=== PATIENT | female | born 1960 | race Hispanic/Latino ===

== ENCOUNTER 2022-03-14 09:17 | Inpatient (IN) | payer OTHER ==
[2022-03-14] VITALS (14 sets, daily range): BP systolic 96–122; BP diastolic 36–76
[~2022-03-14] VITALS: Ht 167.6 cm; Wt 86.2 kg
[2022-03-14 11:24] LABS: BASOPHILS % (AUTO) 0.4 % (0.0-5.0); HEMATOCRIT 42.9 % (36-48); LYMPHOCYTES % (AUTO) 45.4 % (21.0-51.0); MEAN CORPUSCULAR HEMOGLOBIN 30.6 pg (27.0-33.0); MEAN CORPUSCULAR HGB CONC 34.3 g/dL (32.0-36.0); MEAN CORPUSCULAR VOLUME 89.4 fL (79-99); NEUTROPHILS % (AUTO) 41.8 % (40.0-77.0); PLATELET COUNT (AUTO) 244 K/uL (130-400); RED CELL DISTRIBUTION WIDTH 13.4 % (11.0-15.5); WHITE BLOOD COUNT (AUTO) 5.3 K/uL (4.8-10.8)
[2022-03-14] MEDS ORDERED: NOREPINEPHRINE 8MG/NS 250ML PREMIX IV SCH (11:30)
[2022-03-14] MEDS ORDERED: HEPARIN 25,000 UNITS/250ML D5W 250 ML IV SCH (11:30)
[2022-03-14 11:49] LABS: POTASSIUM 2.8 mmol/L (3.5-5.1)
[2022-03-14] MEDS: NOREPINEPHRIN 8MG/250ML NS PMX 250 ML IV SCH (11:59)
[2022-03-14] MEDS ORDERED: ONDANSETRON 4MG INJ IV PRN (12:00)
[2022-03-14] MEDS ORDERED: LACTULOSE 20 GM/30 ML UDCUP PO PRN (12:00)
[2022-03-14] MEDS ORDERED: DiphenhydrAMINE HCL 50 MG/ML VIAL IV PRN (12:00)
[2022-03-14] MEDS ORDERED: MAG/ALUM/SIMETH 30 ML UDCUP PO PRN (12:00)
[2022-03-14] MEDS ORDERED: NITROGLYCERIN 0.4 MG SL TAB SL PRN (12:00)
[2022-03-14] MEDS ORDERED: ACETAMINOPHEN 325 MG TAB PO PRN ×2 (12:00)
[2022-03-14] MEDS ORDERED: DIPHENHYDRAMINE HCL 25 MG CAPSULE PO PRN (12:00)
[2022-03-14] MEDS ORDERED: GUAIFENESIN-DM 200/20 MG 10 ML PO PRN (12:00)
[2022-03-14] MEDS: POTASSIUM CHLORIDE 10% ELIXIR 20 MEQ/15 ML UDCUP PO PRN ×2 (12:22→14:16)
[2022-03-14] MEDS ORDERED: LIDOCAINE HCL-MPF 1% 2ML VIAL IV PRN (12:30)
[2022-03-14] MEDS ORDERED: POTASSIUM CHLORIDE 20MEQ/100ML 100 ML IV PRN (12:30)
[2022-03-14] MEDS: KCL 20 MEQ ERTAB PO PRN ×2 (17:50→21:52)
[2022-03-14] MEDS: FAMOTIDINE 20MG VIAL IV SCH ×2 (20:46→21:00)
[2022-03-14] MEDS: FAMOTIDINE 20MG TAB PO SCH (20:47)
[2022-03-14] MEDS: ATORVASTATIN 40 MG TABLET PO SCH (20:54)
[2022-03-15] VITALS (48 sets, daily range): BP systolic 85–129; BP diastolic 37–90
[2022-03-15] MEDS: KCL 20 MEQ ERTAB PO PRN ×2 (00:06→21:33)
[2022-03-15] MEDS: NOREPINEPHRIN 8MG/250ML NS PMX 250 ML IV SCH (04:14)
[2022-03-15 06:51] LABS: BASOPHILS % (AUTO) 0.3 % (0.0-5.0); EOSINOPHILS % (AUTO) 1.9 % (0.0-8.0); HEMATOCRIT 40.1 % (36-48); LYMPHOCYTES % (AUTO) 34.3 % (21.0-51.0); MEAN CORPUSCULAR HEMOGLOBIN 30.6 pg (27.0-33.0); MEAN CORPUSCULAR HGB CONC 33.9 g/dL (32.0-36.0); MEAN CORPUSCULAR VOLUME 90.1 fL (79-99); MONOCYTES % (AUTO) 9.3 % (3.0-13.0); NEUTROPHILS % (AUTO) 53.7 % (40.0-77.0); PLATELET COUNT (AUTO) 205 K/uL (130-400); RED BLOOD CELL COUNT(AUTO) 4.45 MIL/uL (4.00-5.50); RED CELL DISTRIBUTION WIDTH 13.5 % (11.0-15.5); WHITE BLOOD COUNT (AUTO) 6.4 K/uL (4.8-10.8)
[2022-03-15 07:01] LABS: CREATININE 0.8 mg/dL (0.5-1.5); MAGNESIUM 1.9 mg/dL (1.80-2.40); PHOSPHORUS 2.3 mg/dL (2.5-4.9); POTASSIUM 3.6 mmol/L (3.5-5.1)
[2022-03-15] MEDS: ASPIRIN 81MG CHEW TAB PO SCH (08:22)
[2022-03-15] MEDS: FAMOTIDINE 20MG TAB PO SCH ×2 (08:22→21:12)
[2022-03-15] MEDS: CLOPIDOGREL 75MG TAB PO SCH (08:22)
[2022-03-15] MEDS: MAGNESIUM 2GM PREMIX 50ML 50 ML IV PRN (11:17)
[2022-03-15] MEDS: MIDODRINE HCL 5 MG TABLET PO SCH ×3 (14:00→21:13)
[2022-03-15 20:38] LABS: MAGNESIUM 2.2 mg/dL (1.80-2.40); POTASSIUM 3.7 mmol/L (3.5-5.1)
[2022-03-15] MEDS: CEFTRIAXONE 1G VIAL IVP SCH (21:12)
[2022-03-15] MEDS: ATORVASTATIN 40 MG TABLET PO SCH (21:12)
[2022-03-15] MEDS ORDERED: NOREPINEPHRIN 4MG/NS 250ML 250 ML IV SCH (21:30)
[2022-03-16] VITALS (36 sets, daily range): BP systolic 85–123; BP diastolic 35–73
[2022-03-16 04:51] LABS: BASOPHILS % (AUTO) 0.4 % (0.0-5.0); EOSINOPHILS % (AUTO) 0.4 % (0.0-8.0); HEMATOCRIT 38.1 % (36-48); LYMPHOCYTES % (AUTO) 44.7 % (21.0-51.0); MEAN CORPUSCULAR HEMOGLOBIN 30.2 pg (27.0-33.0); MEAN CORPUSCULAR HGB CONC 33.3 g/dL (32.0-36.0); MEAN CORPUSCULAR VOLUME 90.5 fL (79-99); MONOCYTES % (AUTO) 10.9 % (3.0-13.0); NEUTROPHILS % (AUTO) 43.2 % (40.0-77.0); PLATELET COUNT (AUTO) 179 K/uL (130-400); RED BLOOD CELL COUNT(AUTO) 4.21 MIL/uL (4.00-5.50); RED CELL DISTRIBUTION WIDTH 13.5 % (11.0-15.5); WHITE BLOOD COUNT (AUTO) 4.9 K/uL (4.8-10.8)
[2022-03-16 04:58] LABS: CREATININE 0.8 mg/dL (0.5-1.5); MAGNESIUM 2.2 mg/dL (1.80-2.40); POTASSIUM 3.6 mmol/L (3.5-5.1)
[2022-03-16 05:00] LABS: INR 0.93 (0.85-1.15); PROTHROMBIN TIME 9.8 SEC (9.6-11.6)
[2022-03-16 05:01] LABS: PARTIAL THROMBOPLASTIN TIME 25.7 SEC (26.3-35.5)
[2022-03-16 07:19] LABS: ABG BASE EXCESS 1.4 mmol/L (-2.0-3.0); ABG HCO3 24.3 mmol/L (21.0-28.0); ABG PCO2 34 mmHg (32-45)
[2022-03-16] MEDS: CLOPIDOGREL 75MG TAB PO SCH (08:20)
[2022-03-16] MEDS: ASPIRIN 81MG CHEW TAB PO SCH (08:20)
[2022-03-16] MEDS: FAMOTIDINE 20MG TAB PO SCH ×2 (08:20→20:43)
[2022-03-16] MEDS: MIDODRINE HCL 5 MG TABLET PO SCH ×3 (08:20→20:43)
[2022-03-16] MEDS ORDERED: MIDODRINE HCL 5 MG TABLET ONE (12:41)
[2022-03-16] MEDS: CEFTRIAXONE 1G VIAL IVP SCH (20:43)
[2022-03-16] MEDS: ATORVASTATIN 40 MG TABLET PO SCH (20:43)
[2022-03-17 00:21] VITALS: BP 94/60
[2022-03-17 03:21] VITALS: BP 95/66
[2022-03-17 04:32] LABS: BASOPHILS % (AUTO) 0.3 % (0.0-5.0); EOSINOPHILS % (AUTO) 0.8 % (0.0-8.0); HEMATOCRIT 37.4 % (36-48); LYMPHOCYTES % (AUTO) 47.5 % (21.0-51.0); MEAN CORPUSCULAR HEMOGLOBIN 30.3 pg (27.0-33.0); MEAN CORPUSCULAR HGB CONC 33.4 g/dL (32.0-36.0); MEAN CORPUSCULAR VOLUME 90.8 fL (79-99); MONOCYTES % (AUTO) 9.8 % (3.0-13.0); NEUTROPHILS % (AUTO) 41.1 % (40.0-77.0); PLATELET COUNT (AUTO) 154 K/uL (130-400); RED BLOOD CELL COUNT(AUTO) 4.12 MIL/uL (4.00-5.50); RED CELL DISTRIBUTION WIDTH 13.5 % (11.0-15.5)
[2022-03-17 04:41] LABS: CREATININE 0.8 mg/dL (0.5-1.5)
[2022-03-17 08:00] VITALS: BP 91/61
[2022-03-17] MEDS: CLOPIDOGREL 75MG TAB PO SCH (09:03)
[2022-03-17] MEDS: MIDODRINE HCL 5 MG TABLET PO SCH ×3 (09:03→20:29)
[2022-03-17] MEDS: FAMOTIDINE 20MG TAB PO SCH ×2 (09:03→20:28)
[2022-03-17] MEDS: ASPIRIN 81MG CHEW TAB PO SCH (09:04)
[2022-03-17 11:46] VITALS: BP 91/55
[2022-03-17] MEDS ORDERED: 0.9%NACL 1000ML 500 ML IV SCH (15:00)
[2022-03-17] MEDS: 0.9%NACL 1000ML 1,000 ML IV SCH ×2 (15:33→20:28)
[2022-03-17 15:49] LABS: APPEARANCE,URINE CLEAR (CLEAR); BILIRUBIN,URINE NEGATIVE (NEGATIVE); COLOR,URINE YELLOW (YELLOW); GLUCOSE, URINE (UA) NEGATIVE (NEGATIVE); KETONES,URINE NEGATIVE (NEGATIVE); LEUKOCYTE ESTERASE ,URINE NEGATIVE Leu/uL (NEGATIVE); NITRATE,URINE NEGATIVE (NEGATIVE); OCCULT BLOOD,URINE NEGATIVE (NEGATIVE); PH,URINE 6.5 (5.0-8.0); PROTEIN,URINE NEGATIVE (NEGATIVE)
[2022-03-17 15:55] LABS: BACTERIA,URINE RARE /HPF (None Seen); MUCUS,URINE FEW LPF (None Seen); OTHER CASTS, URINE 1 /LPF (None Seen); SQUAMOUS EPITHELIAL CELL,UR FEW /HPF (0-2)
[2022-03-17] MEDS ORDERED: IOHEXOL-350 75 ML VIAL IV ONE (16:02)
[2022-03-17 16:10] VITALS: BP 102/59
[2022-03-17 19:00] VITALS: BP 107/65
[2022-03-17] MEDS: CEFTRIAXONE 1G VIAL IVP SCH (20:29)
[2022-03-17] MEDS: ATORVASTATIN 40 MG TABLET PO SCH (20:29)
[2022-03-18] VITALS (8 sets, daily range): BP systolic 92–124; BP diastolic 54–76
[2022-03-18] MEDS: 0.9%NACL 1000ML 1,000 ML IV SCH ×3 (04:11→22:41)
[2022-03-18 04:41] LABS: CREATININE 0.8 mg/dL (0.5-1.5); MAGNESIUM 1.9 mg/dL (1.80-2.40); PHOSPHORUS 4.6 mg/dL (2.5-4.9); POTASSIUM 3.5 mmol/L (3.5-5.1)
[2022-03-18] MEDS: MAGNESIUM 2GM PREMIX 50ML 50 ML IV PRN (05:20)
[2022-03-18] MEDS: KCL 20 MEQ ERTAB PO PRN ×2 (05:20→08:58)
[2022-03-18] MEDS ORDERED: 0.9%NACL 1000ML 1,000 ML IV SCH (07:30)
[2022-03-18] MEDS: FAMOTIDINE 20MG TAB PO SCH ×2 (08:58→20:54)
[2022-03-18] MEDS: ASPIRIN 81MG CHEW TAB PO SCH (08:58)
[2022-03-18] MEDS: CLOPIDOGREL 75MG TAB PO SCH (08:59)
[2022-03-18] MEDS: MIDODRINE HCL 5 MG TABLET PO SCH ×3 (08:59→20:54)
[2022-03-18] MEDS: CEFTRIAXONE 1G VIAL IVP SCH (20:54)
[2022-03-18] MEDS: ATORVASTATIN 40 MG TABLET PO SCH (20:54)
[2022-03-19 03:58] VITALS: BP 119/60
[2022-03-19 06:35] VITALS: BP_SYST 110; BP_SYST 134; BP_DIAS 58; BP_DIAS 68
[2022-03-19] MEDS: 0.9%NACL 1000ML 1,000 ML IV SCH (06:35)
[2022-03-19] MEDS ORDERED: MIDODRINE HCL 5 MG TABLET PO PRN (08:00)
[2022-03-19] MEDS ORDERED: CEPH500C2 PO (08:36)
[2022-03-19] MEDS ORDERED: MIDO5TAB4 PO (08:36)
[2022-03-19] MEDS ORDERED: PANT40TA55 PO (08:36)
[2022-03-19] MEDS ORDERED: CLOP75TA14 PO (08:36)
[2022-03-19] MEDS ORDERED: ASPI-1005 PO (08:36)
[2022-03-19] MEDS ORDERED: ATOR40TA69 PO (08:36)
[2022-03-19 09:35] LABS: ALBUMIN 2.9 g/dL (3.5-5.0); CREATININE 0.8 mg/dL (0.5-1.5); POTASSIUM 3.9 mmol/L (3.5-5.1); TOTAL PROTEIN, SERUM 7.5 g/dL (6.0-8.3)
[2022-03-19] MEDS: ASPIRIN 81MG CHEW TAB PO SCH (09:40)
[2022-03-19] MEDS: CLOPIDOGREL 75MG TAB PO SCH (09:40)
[2022-03-19] MEDS: FAMOTIDINE 20MG TAB PO SCH (09:40)
[2022-03-19 12:00] VITALS: BP 109/70
== END 2022-03-19 11:45 | disposition home or self-care (01) | DRG 280 ==
LOC: EDH 09:17 → DIRECT 09:56 → 2BH 10:31 → 2DH 03-16 14:56 → 2AH 03-18 16:15
PROVIDERS: ADMIT Internal Medicine; ATTEND Internal Medicine
DX: I21.19 ST elevation (STEMI) myocardial infarction involving other coronary artery of inferior wall (principal); U07.1 COVID-19; N39.0 Urinary tract infection, site not specified; F14.229 Cocaine dependence with intoxication, unspecified; F31.9 Bipolar disorder, unspecified; E78.5 Hyperlipidemia, unspecified; Z68.30 Body mass index [BMI] 30.0-30.9, adult; I11.9 Hypertensive heart disease without heart failure; B96.20 Unspecified Escherichia coli [E. coli] as the cause of diseases classified elsewhere; E66.01 Morbid (severe) obesity due to excess calories; M54.9 Dorsalgia, unspecified; F17.200 Nicotine dependence, unspecified, uncomplicated; F41.9 Anxiety disorder, unspecified; G89.29 Other chronic pain; I25.2 Old myocardial infarction; Z82.49 Family history of ischemic heart disease and other diseases of the circulatory system; Z90.49 Acquired absence of other specified parts of digestive tract
CPT/HCPCS: 36415; 36600; 71045; 71270; 80048; 80053; 80061; 81001; 82533; 82803; 82948; 83735; 83880; 84100; 84132; 84443; 84484; 85025; 85378; 85610; 85730; 87040; 93005; 93306; 93356; 93970; C1751; C1894; G0378; J0696; J1644; J3475; J3490; J7030; Q9967